=== PATIENT | female | born 1975 ===

== ENCOUNTER → 2017-06-26 09:20 | Outpatient (CLI) | payer OTHER ==
[~2017-06-26 09:20] MED LIST: ACIDOPHILUS1 EAC3 PO; AMOX1TAB12 PO; CARDIZEM CD180 MG; CLARITIN-D 241 EACH PO; FIORICET PO; HYZAAR 50-12.1 UDTAB; LOSARTAN-HCTZ1 EACH; NASONEX17 GM TOP; NORVASC2.5 M1; NORVASC5 MG; VITAMIN D250000 UNIT PO; ZYRTEC10 MG PO
== END | disposition home or self-care (01) ==
LOC: LAB 09:20
DX: E78.2 Mixed hyperlipidemia (principal); I11.9 Hypertensive heart disease without heart failure; R73.02 Impaired glucose tolerance (oral); E03.9 Hypothyroidism, unspecified; N18.1 Chronic kidney disease, stage 1; E56.8 Deficiency of other vitamins

== ENCOUNTER 2017-11-20 17:31 | Emergency (ER) | payer OTHER ==
[~2017-11-20] VITALS: Ht 170.2 cm; Wt 79.4 kg
== END 2017-11-20 21:08 | disposition home or self-care (01) ==
LOC: ER 17:31
DX: M79.1 Myalgia (principal)

== ENCOUNTER → 2018-01-07 06:11 | Outpatient (CLI) | payer OTHER | END | disposition home or self-care (01) | LOC: LAB 06:11 | DX: R73.02 Impaired glucose tolerance (oral) (principal); I10 Essential (primary) hypertension; E78.2 Mixed hyperlipidemia; E55.9 Vitamin D deficiency, unspecified; Z13.1 Encounter for screening for diabetes mellitus; Z12.11 Encounter for screening for malignant neoplasm of colon ==

== ENCOUNTER 2018-07-08 06:53 | Emergency (ER) | payer OTHER ==
[~2018-07-08] VITALS: Ht 170.2 cm; Wt 73.5 kg
[2018-07-08] MEDS ORDERED: BENADRYL25 MG PO (08:06)
[2018-07-08] MEDS ORDERED: MEDROL8 MG PO (08:06)
== END 2018-07-08 09:21 | disposition home or self-care (01) ==
LOC: ER 06:53
DX: H10.11 Acute atopic conjunctivitis, right eye (principal)

== ENCOUNTER 2019-04-19 10:31 | Outpatient (CLI) | payer OTHER ==
[~2019-04-19 10:31] MED LIST changes: +BENADRYL25 MG PO; +MEDROL8 MG PO
== END 2019-04-19 10:42 | disposition home or self-care (01) ==
LOC: LAB 10:31
DX: R10.2 Pelvic and perineal pain (principal); N39.0 Urinary tract infection, site not specified; Z00.00 Encounter for general adult medical examination without abnormal findings; E78.49 Other hyperlipidemia; E55.9 Vitamin D deficiency, unspecified

== ENCOUNTER 2019-04-19 11:36 | Outpatient (CLI) | payer OTHER | END 2019-04-19 11:42 | disposition home or self-care (01) | LOC: MAMO-SONO 11:36 → SONOGRAMA 11:36 | DX: R10.2 Pelvic and perineal pain (principal) ==

== ENCOUNTER 2020-01-27 12:51 | Outpatient (CLI) | payer OTHER | END 2020-01-27 15:00 | disposition home or self-care (01) | LOC: SONOGRAMA 12:51 | PROVIDERS: ATTEND Specialist | DX: R10.2 Pelvic and perineal pain (principal) ==

== ENCOUNTER 2020-04-28 06:34 | Outpatient (CLI) | payer OTHER | END 2020-04-28 06:35 | disposition home or self-care (01) | LOC: LAB 06:34 | PROVIDERS: ATTEND Specialist | DX: Z32.02 Encounter for pregnancy test, result negative (principal); N91.0 Primary amenorrhea; E22.1 Hyperprolactinemia; R53.83 Other fatigue; R53.1 Weakness; D64.89 Other specified anemias ==

== ENCOUNTER 2020-10-26 12:00 | Outpatient (CLI) | payer OTHER | END 2020-10-26 15:00 | disposition home or self-care (01) | LOC: LAB 12:00 | PROVIDERS: ATTEND Emergency Medicine Pediatric Emergency Medicine | DX: Z03.818 Encounter for observation for suspected exposure to other biological agents ruled out (principal) ==

== ENCOUNTER 2020-12-13 08:00 | Outpatient (CLI) | payer OTHER | END 2020-12-13 08:30 | disposition home or self-care (01) | LOC: PPH VACUNA 08:00 | PROVIDERS: ATTEND Emergency Medicine Pediatric Emergency Medicine | DX: Z23 Encounter for immunization (principal) ==

== ENCOUNTER 2020-12-18 08:00 | Outpatient (CLI) | payer OTHER | END 2020-12-18 08:30 | disposition home or self-care (01) | LOC: PPH VACUNA 08:00 | PROVIDERS: ATTEND Emergency Medicine Pediatric Emergency Medicine | DX: Z23 Encounter for immunization (principal) ==

== ENCOUNTER → 2021-05-30 06:17 | Outpatient (CLI) | payer OTHER | END | disposition home or self-care (01) | LOC: LAB 06:17 | PROVIDERS: ATTEND General Practice | DX: R10.2 Pelvic and perineal pain (principal); N92.6 Irregular menstruation, unspecified ==

== ENCOUNTER → 2021-08-23 | Outpatient (CLI) | payer OTHER | END | disposition home or self-care (01) | LOC: MAMO-SONO 08:18 | PROVIDERS: ATTEND Specialist | DX: Z12.31 Encounter for screening mammogram for malignant neoplasm of breast (principal); N63.0 Unspecified lump in unspecified breast ==